=== PATIENT | male | born 1995 | race Two or more races ===

== ENCOUNTER 2020-01-10 16:51 | Emergency (ER) | payer BC, OTHER ==
[2020-01-10] MEDS ORDERED: Sodium Chloride 0.9% 10 ML Syringe FLUSH PRN (17:42)
[2020-01-10] MEDS ORDERED: Alum Hydrox/Mag Hydrox/Simeth 30 ML, Lidocaine 2% 15 ML PO ONE ×2 (18:05)
[2020-01-10] MEDS ORDERED: Aspirin 81 MG Tab.Chew PO ONE (18:08)
--- NOTE | 2020-01-10 18:14 | EDM.PDOC ---
ED HPI GENERAL MEDICAL PROBLEM - General Chief Complaint: Chest Pain Stated Complaint: CHEST PAIN,DIZZY,SOB,TINGLING Time Seen by Provider: 01/10/20 17:59 Source of Information: Reports: Patient History Limitations: Reports: No Limitations - History of Present Illness INITIAL COMMENTS - FREE TEXT/NARRATIVE: Patient is a 24-year-old male presenting to the emergency department with complaints of intermittent chest pain for the last 2 days. He states that he has a feeling of chest pressure which is fairly constant but does occasionally come and go. Also has intermittent twinges of worsening sharp chest pain. When he has the episodes of worsening chest pain, he does complain of feeling short of breath and like he may pass out. He states that his symptoms of chest pain s eem to worsen by eating. States he has had intermittent episodes of heartburn in the past. He also has had some intermittent tingling in his feet, which has since resolved. States he has had chest pains in the past and had a cardiac work-up completed with his heart was found to be overall normal, however he did have a slight arrhythmia. He denies any significant cardiac history or chronic health problems. Chest Pain Score (Numeric/FACES): 1 - Related Data Allergies Allergy/AdvReac Type Severity Reaction Status Date / Time No Known Allergies Allergy Verified 01/10/20 17:12 Home Meds: Home Meds Methylphenidate HCl [Methylphenidate ER] 1 tab PO DAILY 01/10/20 [History] Past Medical History - Past Health History Medical/Surgical History: Denies Medical/Surgical History Social & Family History - Tobacco Use Smoking Status *Q: Never Smoker Second Hand Smoke Exposure: No - Caffeine Use Caffeine Use: Reports: Energy Drinks - Recreational Drug Use Recreational Drug Use: No ED ROS GENERAL - Review of Systems Review Of Systems: See Below Constitutional: Reports: No Symptoms. Denies: Fever, Chills, Weakness HEENT: Reports: No Symptoms Respiratory: Reports: Shortness of Breath (Intermittent). Denies: Wheezing, Cough Cardiovascular: Reports: Chest Pain (Intermittent), Lightheadedness. Denies: Dyspnea on Exertion, Syncope Endocrine: Reports: No Symptoms GI/Abdominal: Reports: No Symptoms. Denies: Abdominal Pain, Diarrhea, Nausea, Vomiting : Reports: No Symptoms Musculoskeletal: Reports: No Symptoms Skin: Reports: No Symptoms Neurological: Reports: Paresthesia (Tingling in feet) Psychiatric: Reports: No Symptoms Hematologic/Lymphatic: Reports: No Symptoms Immunologic: Reports: No Symptoms ED EXAM, GENERAL - Physical Exam Exam: See Below Exam Limited By: No Limitations General Appearance: Alert, WD/WN, No Apparent Distress Respiratory/Chest: No Respiratory Distress, Lungs Clear, Normal Breath Sounds, No Accessory Muscle Use, Chest Non-Tender Cardiovascular: Normal Peripheral Pulses, Regular Rate, Rhythm, No Edema, No Gallop, No JVD, No Murmur, No Rub GI/Abdominal: Normal Bowel Sounds, Soft, Non-Tender, No Organomegaly, No Distention, No Abnormal Bruit, No Mass Neurological: Alert, Oriented, CN II-XII Intact, Normal Cognition, Normal Gait, Normal Reflexes, No Motor/Sensory Deficits Psychiatric: Normal Affect, Normal Mood Skin Exam: Warm, Dry, Intact, Normal Color, No Rash EKG INTERPRETATION EKG Date: 01/10/20 Time: 16:55 Rhythm: NSR Rate (Beats/Min): 65 [place]: Normal P-Wave: Present QRS: Normal ST-T: Normal QT: Normal Comparison: NA - No Prior EKG Course - Vital Signs Last Recorded V/S: Last Vital Signs Temp 97.6 F 01/10/20 17:09 Pulse 65 01/10/20 17:09 Resp 20 01/10/20 17:09 BP 139/104 H 01/10/20 17:09 Pulse Ox 100 01/10/20 17:09 - Orders/Labs/Meds Orders: Active Orders 24 hr Category Date Time Status EKG Documentation Completion [RC] STAT Care 01/10/20 17:43 Active Peripheral IV Care [RC] . DIRECTED Care 01/10/20 17:42 Active Sodium Chloride 0.9% [Saline Flush] Med 01/10/20 17:42 Active 10 ml FLUSH ASDIRECTED PRN Peripheral IV Insertion Adult [OM.PC] Stat Oth 01/10/20 17:42 Ordered Medication Orders Sodium Chloride (Saline Flush) 10 ml FLUSH ASDIRECTED PRN PRN Reason: Keep Vein Open Labs: Laboratory Tests 01/10/20 01/10/20 01/10/20 Range/Units 17:55 17:55 17:55 WBC 8.88 (4.23-9.07) K/mm3 RBC 4.79 (4.63-6.08) M/mm3 Hgb 14.5 (13.7-17.5) gm/dl Hct 42.3 (40.1-51.0) % MCV 88.3 (79.0-92.2) fl MCH 30.3 (25.7-32.2) pg MCHC 34.3 (32.2-35.5) g/dl RDW Std Deviation 42.3 (35.1-43.9) fL Plt Count 329 (163-337) K/mm3 MPV 8.8 L (9.4-12.3) fl Neut % (Auto) 61.4 (34.0-67.9) % Lymph % (Auto) 30.9 (21.8-53.1) % Slope % (Auto) 6.4 (5.3-12.2) % Eos % (Auto) 0.9 (0.8-7.0) Baso % (Auto) 0.2 (0.1-1.2) % Neut # (Auto) 5.45 H (1.78-5.38) K/mm3 Lymph # (Auto) 2.74 (1.32-3.57) K/mm3 Slope # (Auto) 0.57 (0.30-0.82) K/mm3 Eos # (Auto) 0.08 (0.04-0.54) K/mm3 Baso # (Auto) 0.02 (0.01-0.08) K/mm3 D-Dimer, Quantitative < 0.19 L (0.19-0.50) mg/L Sodium 140 (136-145) mEq/L Potassium 3.5 (3.5-5.1) mEq/L Chloride 102 (98-107) mEq/L Carbon Dioxide 27 (21-32) mEq/L Anion Gap 14.5 (5-15) BUN 16 (7-18) mg/dL Creatinine 1.2 (0.7-1.3) mg/dL Est Cr Clr Drug Dosing 101.97 mL/min Estimated GFR (MDRD) > 60 (>60) mL/min BUN/Creatinine Ratio 13.3 L (14-18) Glucose 97 (74-106) mg/dL Calcium 9.5 (8.5-10.1) mg/dL Total Bilirubin 0.6 (0.2-1.0) mg/dL AST 49 H (15-37) U/L ALT 64 H (16-63) U/L Alkaline Phosphatase 44 L (46-116) U/L Troponin I < 0.017 (0.00-0.056) ng/mL Total Protein 8.1 (6.4-8.2) g/dl Albumin 4.3 (3.4-5.0) g/dl Globulin 3.8 gm/dL Albumin/Globulin Ratio 1.1 (1-2) Meds: Medications Generic Name Dose Route Start Last Admin Trade Name Freq PRN Reason Stop Dose Admin Sodium Chloride 10 ml 01/10/20 17:42 Saline Flush FLUSH ASDIRECTED PRN Keep Vein Open Discontinued Medications Generic Name Dose Route Start Last Admin Trade Name Freq PRN Reason Stop Dose Admin Aspirin 324 mg 01/10/20 18:08 01/10/20 18:52 Aspirin PO 01/10/20 18:09 324 mg ONETIME ONE Administration Al Hydroxide/Mg Hydroxide 30 0 ml 01/10/20 18:05 01/10/20 18:52 ml/ Lidocaine HCl 15 ml PO 01/10/20 18:06 45 ml ONETIME ONE Administration - Re-Assessments/Exams Free Text/Narrative Re-Assessment/Exam: 01/10/20 19:11 Hematology was grossly unremarkable. D-dimer was negative. Electrolytes were normal. Troponin was negative. EKG was normal and chest x-ray was also normal. Patient has not had a recurrence of pain while in the ER, but states he still has a "slight pressure" in his chest. He states that that this did not change with the GI cocktail. This lowers my suspicion that this is GERD or esophageal spasms. He verbalized that he has had problems with anxiety in the past but feels like that is fairly well controlled. Discussed that he may try using [id number] NSAIDs for the treatment of the chest pain. If he finds that he is having more frequent episodes of this, I would recommend a follow-up with his primary care doctor to us discuss possibility of anxiety medications to see if that improves her symptoms. Return to ER for any worsening symptoms. He is in agreement with this plan. Discharge instructions as documented. Departure - Departure Time of Disposition: 19:14 Disposition: Home, Self-Care 01 Condition: Good Clinical Impression: Non-cardiac chest pain Instructions: Nonspecific Chest Pain, Adult, [id number] Referrals: Sherine Boogie, [employer] [Primary Care Provider] - Forms: ED Department Discharge Additional Instructions: You were seen in the emergency department today for 2-day history of intermittent chest pressure and pain. Your work-up included blood work, EKG of your heart, and a chest x-ray. Your work-up was completely normal. Your d- dimer was negative indicating that you do not have a blood clot in your lungs. Your troponin was negative indicating that the pain is not coming from your heart. As we discussed, there are number causes of noncardiac chest pain including anxiety, muscle spasms, and esophageal reflux/esophageal spasms. While in the ER, you received a GI cocktail which he states did not really change her symptoms. This lowers the likelihood that this is related to your esophagus. Musculoskeletal pain as well as anxiety are still possible causes of your pain. Recommend that you try using [id number] NSAIDs such as ibuprofen to treat the pain. If you find that you are having more frequent episodes of this, would recommend that you follow-up with your primary care provider to discuss the potential of anxiety. If you experience any new or worsening symptoms of concern, please do not hesitate to return to the emergency department. Sepsis Event Note (ED) - Evaluation Sepsis Screening Result: No Definite Risk - Focused Exam Vital Signs: Vital Signs Temp Pulse Resp BP Pulse Ox 01/10/20 17:09 97.6 F 65 20 139/104 H 100 - My Orders Last 24 Hours: My Active Orders 01/10/20 17:42 Peripheral IV Care [RC] . DIRECTED Sodium Chloride 0.9% [Saline Flush] 10 ml FLUSH ASDIRECTED PRN Peripheral IV Insertion Adult [OM.PC] Stat 01/10/20 17:43 EKG Documentation Completion [RC] STAT - Assessment/Plan Last 24 Hours: My Active Orders 01/10/20 17:42 Peripheral IV Care [RC] . DIRECTED Sodium Chloride 0.9% [Saline Flush] 10 ml FLUSH ASDIRECTED PRN Peripheral IV Insertion Adult [OM.PC] Stat 01/10/20 17:43 EKG Documentation Completion [RC] STAT
--- NOTE | 2020-01-10 18:30 | CR ---
Chest: 2 views of the chest were obtained. Comparison: No prior chest imaging. Heart size and mediastinum are normal. Lungs are clear with no acute parenchymal change. Bony structures are unremarkable. Impression: 1. Nothing acute is seen. Diagnostic code #1 This report was dictated in MDT
== END 2020-01-10 19:20 | disposition home or self-care (01) ==
LOC: JD.ED 16:51
DX: R07.89 Other chest pain (principal); Z79.899 Other long term (current) drug therapy
CPT/HCPCS: 36415; 71046; 80053; 84484; 85025; 85379; 93005; 99285; A9270; 93010; 99283

== ENCOUNTER 2022-03-22 21:41 | Emergency (ER) | payer OTHER ==
[2022-03-22] MEDS ORDERED: Azithromycin 250 MG Tab PO ONE (22:28)
[2022-03-22] MEDS ORDERED: cefTRIAXone 250 MG, Lidocaine 1% 0.9 ML IM ONE ×2 (22:28)
[2022-03-23 00:30] LABS: C. TRACHOMATIS BY PCR DETECTED; N. GONORRHOEAE BY PCR NOT DETECTED
== END 2022-03-22 23:45 | disposition home or self-care (01) ==
LOC: JD.ED 21:41
DX: Z20.2 Contact with and (suspected) exposure to infections with a predominantly sexual mode of transmission (principal); Z79.899 Other long term (current) drug therapy
CPT/HCPCS: 36415; 86592; 87449; 87491; 87591; 96372; 99283; A9270; J0696; G0433

== ENCOUNTER 2022-06-06 21:33 | Emergency (ER) | payer OTHER ==
[2022-06-06 23:46] LABS: C. TRACHOMATIS BY PCR DETECTED; N. GONORRHOEAE BY PCR NOT DETECTED
== END 2022-06-06 22:16 | disposition home or self-care (01) ==
LOC: JD.ED 21:33
DX: R30.0 Dysuria (principal)
CPT/HCPCS: 81001; 87491; 87591; 99283